=== PATIENT | female | born 1955 | race Caucasian/White ===

== ENCOUNTER 2017-09-01 16:59 | Emergency (ER) | payer MEDICARE, OTHER ==
[2017-09-01] MEDS ORDERED: fentaNYL CITRATE/PF 100 MCG/ 2ML AMP IM ONE (17:02)
--- NOTE | 2017-09-01 17:05 | ED Physician Documentation ---
Fall - HISTORIAN Historian: child - HPI Chief Complaint: Fall Additional Information: pt tripped fell intio0 bed rail w/marked rt ant low rib pain - hurts to breathe move Onset: hours (1600) Where: home Context: tripped r: moderate Associated Symptoms:: no loss of consciousness Location of Pain/Injury: denies: head Injury to Right Extremity: denies: none Injury to Left Extremity: denies: none - ROS CONST: no problems NEURO: denies: dizziness, anxiety, depression MS/SKIN/LYMPH: denies: weakness, numbness, neck pain, back pain CVS/RESP: none, shortness of breath (hurts to breathe) - PAST HX Past History: cardiac disease, other (CVA SEIZURES) Allergies/Adverse Reactions: Allergies Allergy/AdvReac Type Severity Reaction Status Date / Time No Known Allergies Allergy Verified 09/01/17 17:49 Home Medications: Ambulatory Orders Medication Instructions Recorded Citalopram Hydrobromide [Celexa] 04/05/13 Ergocalciferol (Vitamin D2) 400 unit PO 04/05/13 [Vitamin D] Furosemide [Furosemide] 04/05/13 Multivitamin [Multivitamins] 1 each PO 04/05/13 Omeprazole [Omeprazole] 04/05/13 Potassium Chloride [K-Dur] 04/05/13 - SOCIAL HX Smoking History: non-smoker Alcohol Use: none Drug Use: none - FAMILY HX Family History: no significant history - VITAL SIGNS Vital Signs: Vital Signs Temp Pulse Resp BP Pulse Ox 132/76 04/05/13 13:26 - REVIEWED ASSESSMENTS Nursing Assessment Reviewed: Yes Vitals Reviewed: Yes ED Results Lab/Radiology - Radiology Radiology Impressions: cxr = no acute disease pneumo or contusion - Orders Orders: ED Orders Category Date Time Status fentaNYL CITRATE/PF [Duragesic] Med 09/01/17 17:02 Once 100 mcg IM NOW ONE Fall Physical Exam - Physical Exam General Appearance: moderate distress Head: non-tender, no swelling, no obvious injury Neck: non-tender ENT: nml external inspection Resp/CVS: other (holds rt ant low rib cage grunts w/each breath as w/pain). No : decreased breath sounds Abdomen: soft, non-tender Neuro: oriented x3, CN's nml as tested, sensation nml, motor nml, mood/affect nml Skin: color nml, no rash. No: cyanosis, diaphoresis, pallor, ecchymosis Back: normal inspection, no CVA tenderness, no vertebral tenderness Extremities: atraumatic Joint: joints nml, Nml gait/weight bearing - [place] Coma Score Eyes Open: Spontaneous Speech: Oriented Motor: Obeys Commands Discharge Clincal Impression: fall- rib fracture Referrals: Primary Doctor,No [REFERRING] - 2 Days Condition: Good Disposition: 01 HOME, SELF-CARE Decision to Admit: NO Decision Time: 18:32
[2017-09-01] MEDS ORDERED: IBUPROFEN 200 MG TABLET PO ONE (17:22)
[2017-09-01] MEDS ORDERED: IBUPROFEN 400 MG TABLET PO ONE (17:22)
--- NOTE | 2017-09-01 17:38 | Diagnostic Imaging Report ---
BOOM LEZAMA [facility] [id number] [facility].[address] [id number] Report Submission Date: Sep 01, 2017 5:27:05 PM CDT Patient Study Name: BERNY LEVY Date: Sep 01, 2017 5:16:07 PM CDT Modality Type: CR Gender: F Description: CHEST : 53 Institution: [facility] Physician: BOOM LEZAMA Examination: PA and lateral chest. History: Evaluate lung jean-baptiste. Comparison exam: None available Findings: PA lateral chest demonstrate a normal cardiac silhouette. Tortuosity of thoracic aorta. Sternotomy wires. Mild prominence of the hilar vasculature. No focal infiltrate. No blunting of the costophrenic margins. Osseous structures are appropriate for age. Impression: No acute pulmonary process. Electronically signed on Sep 01, 2017 5:27:05 PM CDT by: Og HILTON
[2017-09-01 18:44] VITALS: BP 142/58
== END 2017-09-01 18:33 | disposition home or self-care (01) ==
LOC: ED 16:59
DX: S22.31XA Fracture of one rib, right side, initial encounter for closed fracture (principal); W19.XXXA Unspecified fall, initial encounter; Y93.9 Activity, unspecified; Y99.9 Unspecified external cause status
CPT/HCPCS: 71020; J3010; 96372; 99283

== ENCOUNTER 2018-05-29 14:04 | Outpatient (CLI) | payer MEDICARE, OTHER ==
[2018-05-30 10:01] LABS: ADENOVIRUS F 40/41 Not Detected (Not Detected); ASTROVIRUS Not Detected (Not Detected); C. DIFFICILE (TOXIN A/B) Not Detected (Not Detected); CRYPTOSPORIDIUM Not Detected (Not Detected); CYCLOSPORA CAYETANENSIS Not Detected (Not Detected); ENTAMOEBA HISTOLYTICA Not Detected (Not Detected); GIARDIA LAMBLIA Not Detected (Not Detected); ROTAVIRUS A Not Detected (Not Detected); SAPOVIRUS Not Detected (Not Detected); VIBRIO CHOLERAE Not Detected (Not Detected)
== END 2018-05-29 14:06 ==
LOC: LAB 14:04
PROVIDERS: ATTEND Nurse Practitioner Family
DX: R19.7 Diarrhea, unspecified (principal)
CPT/HCPCS: 87507

== ENCOUNTER 2019-08-16 13:10 | Emergency (ER) | payer MEDICAID, OTHER | END 2019-08-16 13:47 | disposition home or self-care (01) | LOC: ED 13:10 | DX: S80.02XA Contusion of left knee, initial encounter (principal); X58.XXXA Exposure to other specified factors, initial encounter ==